=== PATIENT | female | born 1990 | race Two or more races ===

== ENCOUNTER 2021-04-05 12:53 | Emergency (ER) | payer OTHER, SELFPAY ==
[2021-04-05 12:58] VITALS: BP 128/73; PULSE 72; O2SAT 100
[2021-04-05 13:06] VITALS: BP 96/55; PULSE 75; RESP 18; TEMP 37.1; O2SAT 99; BMI 21.2
[2021-04-05] MEDS: Acetaminophen 325 MG TABLET 975 MG PO (13:28)
[2021-04-05] MEDS: Lidocaine 4 % Patch ADH..PATCH 1 PATCH TRANSDERMA (13:28)
[2021-04-05] MEDS: Cyclobenzaprine HCl 10 MG TABLET PO (13:28)
[2021-04-05] MEDS: Ketorolac Tromethamine 30 MG/ML VIAL IM (13:29)
--- NOTE | 2021-04-05 13:32 | ED_ITS ---
HPI - Back Pain/Injury General Chief Complaint: Back Pain/Injury Stated Complaint: back pain Time Seen by Provider: 04/05/21 13:18 Source: patient Mode of arrival: ambulatory Limitations: no limitations History of Present Illness HPI Narrative: 30 y/o female presenting to ER from home via EMS with severe lower back pain that started yesterday when she was lifting boxes. Today when she got up out of bed the pain was excruciating. Described as spasm and tightness in her left lower back. It radiates down the back of her left leg. No numbness, tingling, incontinence or fevers. Difficulty walking due to pain. MD elicited complaint: back pain Onset (ago): day(s) (1) Timing: constant Severity: severe Similar Symptoms Previously: No Quality: aching and spasming Location: left lower back Radiation: left upper leg Exacerbating factors: movement, walking and coughing/sneezing Relieving factors: none Context: while lifting and turning/twisting Associated symptoms: denies other symptoms Work related injury: No Related Data Previous Rx's Medication Instructions Recorded cyclobenzaprine 10 mg PO TID PRN #12 tab 04/05/21 ibuprofen 800 mg PO Q8H PRN #15 tab 04/05/21 lidocaine [Lidoderm] 1 patch TOPICAL DAILY #15 ea 04/05/21 Allergies Allergy/AdvReac Type Severity Reaction Status Date / Time No Known Allergies Allergy Verified 04/05/21 13:09 Review of Systems Review of Systems: Constitutional: No Fever, No Chills Gastrointestinal: No Nausea, No Vomiting, No Diarrhea, No abdominal Pain Genitourinary: No Dysuria, No Urinary Frequency, No Hematuria Musculoskeletal: No joint pain, + Myalgias Skin: No Skin Lesions, No rash Neuro: No Weakness, No Numbness Heme/Lymph: No Bruising, No Lymphadenopathy PMFSH Past Medical History Attestation statement: The following information was validated with the patient. Medical History (Updated 04/05/21 @ 14:11 by ADONIS Coley) No known health problems Social History Social History Advance Directives: No Advance Directives Information Provided: Yes Patient : No Physical Exam Vital Signs: Vital Signs: Last Vital Signs Temp 98.7 F 04/05/21 13:06 Pulse 75 04/05/21 13:06 Resp 17 04/05/21 14:23 BP 96/55 L 04/05/21 13:06 Pulse Ox 99 04/05/21 13:06 Body Mass Index 21.2 Appearance: Alert. Oriented X3. No acute distress. HEENT: normal inspection CVS: Normal heart rate and rhythm. Pulses normal. Respiratory: No respiratory distress. Skin: Skin warm and dry. Normal skin color. Normal skin turgor. No rashes. Back: left middle lumbar area with soft tissue tenderness and spasm. +straight leg raise test. no spinal tenderness. Limited ROM due to pain. Extremities: atraumatic, no edema. Neuro: Oriented X 3. SLow but steady gait due to pain. Course Course Course Narrative: 30 y/o female presenting with left sided low back pain after lifting heavy boxes yesterday then turning today. Exam and clinical presentation consistent with muscular injury/strain. No red flag symptoms of LBP. No urinary symptoms. Will treat with NSAID, muscle relaxer, tylenol, lidoderm and reassess. Reevaluation(s) Reevaluation #1: Pain much improved. She is slow but steady with her movements. She is stable for discharge with treatment for muscle strain. Discharge Plan Discharge Clinical Impression: Strain of lumbar region Qualifiers: Encounter type: initial encounter Qualified Code(s): S39.012A - Strain of muscle, fascia and tendon of lower back, initial encounter Patient Disposition: Home, Self-Care Instructions: Low Back Strain (ED), Lower Back Exercises (ED) Additional Instructions: No bending, lifting or twisting. Use ice several times per day for 20 minutes at a time for the next 48 hours and then change to heat. Take medications as prescribed to help with pain and discomfort. Follow up with your Primary Care Doctor this week. If your pain worsens, if you develop new numbness, tingling, weakness, loss of function or incontinence call 911 or come back to the ER right away for evaluation. Sin agacharse, levantar ni torcer. Use hielo varias veces al d?a dior 20 minutos a la vez dior las pr?ximas 48 horas y luego cambie a calor. Nubieber los medicamentos recetados para aliviar el dolor y la incomodidad. Louann un seguimiento con cancino m?dico de atenci?n primaria esta semana. Si cancino dolor empeora, si presenta entumecimiento, hormigueo, debilidad, p?rdida de funci?n o incontinencia nuevos, llame al 911 o regrese a la jazmin de emergencias de inmediato para mykel evaluaci?n. Prescriptions: New cyclobenzaprine 10 mg tablet 10 mg PO TID PRN (Reason: muscle spasm) Qty: 12 RF: 0 ibuprofen 800 mg tablet 800 mg PO Q8H PRN (Reason: pain) Qty: 15 RF: 0 lidocaine [Lidoderm] 5 % adhesive patch,medicated 1 patch topical DAILY Qty: 15 RF: 0 Stand Alone Forms: Work/School Release Interventions: ED Discharge Assessment Last Done: 04/05/21 14:55 Discharge Date/Time: 04/05/21 14:55 Print Language: Montserratian
[2021-04-05 14:23] VITALS: RESP 17
--- NOTE | 2021-04-05 14:54 | PC.NURSE ---
PT ABLE TO STAND AND PIVOT FROM BED TO W/C WITHOUT ANY DIFFICULTY. PT SLOW TO MOVE BUT WAS ABLE TO GET INTO WHEELCHAIR. PT WAITING FOR RIDE HOME IN [facility].
== END 2021-04-05 14:55 | disposition home or self-care (01) ==
PROVIDERS: Emergency Provider Emergency Medicine Emergency Medical Services
DX: M54.42 Lumbago with sciatica, left side (principal); S39.012A Strain of muscle, fascia and tendon of lower back, initial encounter; X50.0XXA Overexertion from strenuous movement or load, initial encounter; Y93.9 Activity, unspecified; Y92.59 Other trade areas as the place of occurrence of the external cause; Y99.0 Civilian activity done for income or pay
CPT/HCPCS: 96372; 99284; J1885

== ENCOUNTER 2022-09-29 14:21 | Outpatient (REF) | payer OTHER, SELFPAY ==
[2022-10-06 04:12] LABS: HPV 16 RNA DETECTED (NOT DETECTED); HPV mRNA E6/E7 rflx Detected (Not Detected)
== END 2022-09-29 14:22 | disposition home or self-care (01) ==
LOC: HO.LNP 14:21
PROVIDERS: Visit Provider Advanced Practice Midwife
DX: B00.9 Herpesviral infection, unspecified (principal); Z12.4 Encounter for screening for malignant neoplasm of cervix; Z20.2 Contact with and (suspected) exposure to infections with a predominantly sexual mode of transmission
CPT/HCPCS: 87624; 87625; 88142

== ENCOUNTER 2022-09-29 14:48 | Outpatient (REF) | payer OTHER, SELFPAY ==
[2022-09-29 18:31] LABS: CT PCR DETECTED (Not Detect.); NG PCR NOT DETECTED (Not Detect.)
[2022-09-30 05:46] LABS: Syphilis Screen Nonreactive (Nonreactive)
[2022-09-30 05:53] LABS: HBsAGNum1 0.18 S/CO (0.00-0.99); HIV AB/AG Nonreactive (Nonreactive); HIV Num 1 0.08 S/CO (0.00-0.99); Hepatitis B Surface Antigen Negative (Negative); ~HepC Num1 0.07 S/CO (0.00-0.79); ~Hepatitis C Antibody Nonreactive (Nonreactive)
[2022-09-30 09:02] LABS: BV Int Neg Control Negative (Negative); BV Int Pos Control Positive (Positive)
[2022-09-30 11:07] LABS: Herpes Simplex Type 2 IgG <0.90 index
== END 2022-09-29 14:49 | disposition home or self-care (01) ==
LOC: HO.LAB 14:48
PROVIDERS: Visit Provider Advanced Practice Midwife
DX: B00.9 Herpesviral infection, unspecified (principal); Z12.4 Encounter for screening for malignant neoplasm of cervix; Z20.2 Contact with and (suspected) exposure to infections with a predominantly sexual mode of transmission
CPT/HCPCS: 86695; 86696; 86780; 86803; 87340; 87389; 87480; 87491; 87510; 87591; 87660

== ENCOUNTER 2022-10-13 15:48 | Outpatient (REF) | payer OTHER, SELFPAY | END 2022-10-13 15:49 | disposition home or self-care (01) | LOC: HO.LNP 15:48 | PROVIDERS: Visit Provider Obstetrics & Gynecology | DX: Z13.89 Encounter for screening for other disorder (principal) ==

== ENCOUNTER 2024-12-08 14:39 | Outpatient (REF) | payer OTHER, SELFPAY ==
[2024-12-09 12:36] LABS: Bacterial Vaginosis PCR NEGATIVE (Negative); Candida Group PCR NOT DETECTED (Not Detect); Candida glab krusei PCR NOT DETECTED (Not Detect); Trichomonas vaginalis PCR NOT DETECTED (Not Detect)
[2024-12-09 13:09] LABS: CT PCR NOT DETECTED (Not Detect.); NG PCR NOT DETECTED (Not Detect.)
[2024-12-11 07:57] LABS: Syphilis Screen Nonreactive (Nonreactive)
[2024-12-11 08:13] LABS: HBsAGNum1 0.33 S/CO (0.00-0.99); HIV AB/AG Nonreactive (Nonreactive); HIV Num 1 0.06 S/CO (0.00-0.99); Hepatitis B Surface Antigen Negative (Negative); ~HepC Num1 0.08 S/CO (0.00-0.79); ~Hepatitis C Antibody Nonreactive (Nonreactive)
== END 2024-12-08 14:40 | disposition home or self-care (01) ==
LOC: HO.LAB 14:39
PROVIDERS: Visit Provider Advanced Practice Midwife
DX: Z12.4 Encounter for screening for malignant neoplasm of cervix (principal); A74.9 Chlamydial infection, unspecified; Z20.2 Contact with and (suspected) exposure to infections with a predominantly sexual mode of transmission; N89.8 Other specified noninflammatory disorders of vagina; Z87.42 Personal history of other diseases of the female genital tract
CPT/HCPCS: 81515; 86780; 86803; 87340; 87389; 87491; 87591; 99212

== ENCOUNTER 2024-12-08 14:45 | Outpatient (AMB) | payer OTHER, SELFPAY ==
[2024-12-08 14:41] VITALS: BP 122/70; BMI 23.7
--- NOTE | 2024-12-08 14:41 | MHC.OFFVIS ---
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 Patient was last seen in 2021 and had at that time it recent history of chlamydia and a recent exposure to herpes and also she had an abnormal Pap smear was ASCUS and positive HPV and was referred cut for colposcopy and she left that visit before being seen. Patient tells me she went to [place] but she does not remember if she had any appointments there. She is not having any particularly symptoms of infections today but wants to be checked she says she has not sexually active currently because she does not have a partner currently. She says that 2 years ago she took plan B and her periods had previously been very regular every month lasting for 5 days but after she took the plan B they were only lasting 1 or 2 days and she wants to know why. She says she did tests and they were all negative. She says she is getting regular periods now but they are all 1-2 days. She denies any major weight gains or losses. She denies any other health problems. [facility] Medical History No known health problems Surgical History H/O bilateral breast reduction surgery Female Reproductive History Menstrual Age of Menarche: 13 Duration of menses: 3-5 days Date of last menstrual period: 11/23/24 control method: none Total pregnancies: 1 Full term: 1 Date of last pap smear: 10/01/22 (ASCUS +HPV) Physical Exam Vital Signs: Last Vital Signs BP 122/70 12/08/24 14:41 BMI result Body Mass Index 23.7 Other: External exam within normal limits vagina is pink and moist with a normal clear discharge consistent with normal vaginal mucus. Cervix is multiparous pink smooth possibly with some white spots on her cervix. External Female Exam: normal external appearance and normal appearance of the urethra Speculum Exam - Vagina: normal appearance of the vagina and normal vaginal discharge Speculum Exam - Cervix: normal appearance of the cervix and Cervical os closed Assessment & Plan Assessment & Plan (1) Herpes: Comment: has oral lesion, started after contact w partner, desires testing, teaching done Code(s): B00.9 - Herpesviral infection, unspecified Category: Medical (2) Cervical cancer screening: Comment: hi risk hpv detected, pap= ascus- needs colpo... Patient apparently left the office without being seen in 2021. Code(s): Z12.4 - Encounter for screening for malignant neoplasm of cervix Category: Medical (3) Chlamydia infection: Comment: test from 09/29/22 positive, rxd 09/30/22. Code(s): A74.9 - Chlamydial infection, unspecified Category: Medical (4) Potential exposure to STD: Comment: PATIENT SHOWED STAFF AT [employer] INFORMATION IN HER PHONE SHOWING THAT SHE HAD BEEN A CONTACT TO [facility] SHE HAD NOT SHARED THIS WITH ME DURING THE VISIT WE WILL SEE HER TOMORROW AND TREAT HER ACCORDINGLY. Code(s): Z20.2 - Contact with and (suspected) exposure to infections with a predominantly sexual mode of transmission Category: Medical (5) Hx of abnormal cervical Pap smear: Comment: 2021-ASCUS with positive HPV. Was scheduled for colpo, left the office without being seen in 2021, apparently went to [place]. Reappearing 12/08/2024 for STI screen reviewed need for follow-up on the abnormal Pap. has appointment in week and a half for Pap smear and will manage accordingly after that. Code(s): Z87.42 - Personal history of other diseases of the female genital tract Category: Medical Plan Testing done today during this visit for gonorrhea chlamydia trichomoniasis Roxana and bacterial vaginosis I reviewed with the patient that her cervix appeared very good today but that she very much needs follow-up for the abnormal Pap smear as she should have had a colposcopy when it was recommended and scheduled in 2021. At that time she also need a test of cure for the chlamydia which was now able to be done in our office as the patient left. 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 I asked the patient to please be sure that she keeps that appointment or rescheduled it if she can not keep that appointment as it is very important for her to have follow-up for her history of abnormal Pap smear in HPV from 2021. Testing ordered as well for blood work for STIs as the patient wanted those today testing ordered for HIV hep B hep C and syphilis.. It did review again with the patient that she had had positive antibodies for the B's in 2021 but she did not remember that and did not seem to remember that today. Of note patient did seem to have difficulty understanding communications in Estonian, for instance that she go straight downstairs to the lab which was repeated several times, and also repeated the same statements multiple times. I did inform her, because she is not on the portal. that we will let her know the results of her blood work and other test when she comes for her next visit in a week and a half. I asked her to keep track of her periods and to document things so that we can discuss them were carefully with her next visit. Orders: Orders Hepatitis C Antibody Today A74.9 - Chlamydial infection, unspecified, Z12.4 - Encounter for screening for malignant neoplasm of cervix, Z20.2 - Contact with and (suspected) exposure to infections with a predominantly sexual mode of transmission HIV Ab/Ag Today A74.9 - Chlamydial infection, unspecified, Z12.4 - Encounter for screening for malignant neoplasm of cervix, Z20.2 - Contact with and (suspected) exposure to infections with a predominantly sexual mode of transmission CT NG by PCR Today N89.8 - Other specified noninflammatory disorders of vagina, Z20.2 - Contact with and (suspected) exposure to infections with a predominantly sexual mode of transmission Bacterial Vaginosis Panel Today N89.8 - Other specified noninflammatory disorders of vagina, Z20.2 - Contact with and (suspected) exposure to infections with a predominantly sexual mode of transmission Hepatitis B Surface Antigen Today A74.9 - Chlamydial infection, unspecified, Z12.4 - Encounter for screening for malignant neoplasm of cervix, Z20.2 - Contact with and (suspected) exposure to infections with a predominantly sexual mode of transmission Syphilis Screen Today A74.9 - Chlamydial infection, unspecified, Z12.4 - Encounter for screening for malignant neoplasm of cervix, Z20.2 - Contact with and (suspected) exposure to infections with a predominantly sexual mode of transmission Coding Level of Care Code New Pt Level 3 (18206) Diagnoses Herpes B00.9 Cervical cancer screening Z12.4 Chlamydia infection A74.9 Potential exposure to STD Z20.2 Hx of abnormal cervical Pap smear Z87.42
== END 2024-12-08 15:18 | disposition home or self-care (01) ==
PROVIDERS: Visit Provider Advanced Practice Midwife
DX: B00.9 Herpesviral infection, unspecified (principal); Z20.2 Contact with and (suspected) exposure to infections with a predominantly sexual mode of transmission; A74.9 Chlamydial infection, unspecified; Z87.42 Personal history of other diseases of the female genital tract
CPT/HCPCS: 99213

== ENCOUNTER 2024-12-08 15:15 | Outpatient (REF) | payer SELFPAY | END 2024-12-08 15:16 | disposition home or self-care (01) | LOC: HO.HHCL 15:15 | PROVIDERS: Visit Provider Advanced Practice Midwife | DX: Z13.89 Encounter for screening for other disorder (principal) ==

== ENCOUNTER 2025-01-30 14:34 | Outpatient (AMB) | payer OTHER, SELFPAY ==
[2025-01-30 14:40] VITALS: BP 116/70; BMI 23.7
--- NOTE | 2025-01-30 14:40 | MHC.OFFVIS ---
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 She had an abnormal Pap smear in 2021 but then moved [place]. She had been given an appointment for colposcopy but she left the office without being seen in 2021 additionally she had had been named as a contact for chlamydia at that time and she had been treated and she also left before that test of cure could be done. She presented in November of this year requesting an STI screen. Full STIs done with negative results she also had mentioned at that visit and brought up again today that 2 years ago she took plan B and ever since she took plan B her periods which used to be 5 days long have been short 2 days and she wants her periods to go back normal for what she experienced as normal. Additionally she is not using anything for contraception now although she does use condoms but she did not elaborate on how consistently. When I offered her something for control she said she would like control but her biggest concern was getting her periods to be back like they used to be. 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 Nevertheless on questioning an offering and she says she does want control pills [facility] Medical History (Updated 01/30/25 @ 15:42 by Leann Miller CNM) No known health problems Surgical History (Updated 01/30/25 @ 15:41 by Leann Miller CNM) H/O bilateral breast reduction surgery Female Reproductive History Menstrual Age of Menarche: 13 Duration of menses: 3-5 days Date of last menstrual period: 01/18/25 control method: none Total pregnancies: 1 Full term: 1 Date of last pap smear: 10/01/22 (ASCUS,HPV +) History of abnormal pap smear: Yes Physical Exam Vital Signs: Last Vital Signs BP 116/70 01/30/25 14:40 BMI result Body Mass Index 23.7 Const Other: Evidence of cosmetic surgery including breast implants General: healthy appearing, comfortable, no acute distress, well developed and alert Nutritional Appearance: average body habitus Orientation/consciousness: patient oriented x3 Limitations: no limitations HEENT Head: Yes normocephalic Neck Neck: Yes normal visual inspection Chest Chest palpation & inspection: normal inspection of the chest Breast/axilla inspection: normal inspection of the breasts and normal inspection of the axillae Breast/axilla palpation: normal palpation of the breasts and normal palpation of the axillae Resp Effort & Inspection: normal respiratory effort GI Inspection: Yes normal to inspection, No Abdominal wall edema and No distended Palpation (GI): Soft to palpation and nontender Other: Vagina pink somewhat dry. Scant if any mucus cervix multiparous appears within normal limits long close thick mobile nontender uterus midposition mobile nontender adnexa nontender nonenlarged good tone with Kegel. General: Yes bladder normal to palpation External Female Exam: normal external appearance and normal appearance of the urethra Speculum Exam - Vagina: normal appearance of the vagina, normal palpation and normal vaginal discharge Speculum Exam - Cervix: normal appearance of the cervix, normal palpation and nontender Bimanual exam- vagina & uterus: normal bimanual exam, normal palpation, uterine size normal, bladder normal to palpation, consistency normal, normal palpation, uterine mobility normal, uterine shape normal, No Cervical tenderness present, non-tender and no cervical motion tenderness Bimanual Exam- Adnexa, other: normal adnexae, no masses, normal and No adnexal tenderness Neuro General: patient oriented x3 Results Reviewed Results Reviewed: Name: Coni De Guzman Age/Sex: 32/F Attending: Leann Miller CNM : 1990 Submitted by: Leann Miller CNM Copies to: MR #: [id number] Status: DEP REF Collected: 09/29/22 Location: [facility] Received: 10/01/22 Interpretation General Category: Epithelial cell abnormality. Adequacy: Endocervical component present. Interpretation: Atypical squamous cells, cannot exclude high grade squamous intraepithelial lesion. Abundant, partially obscuring acute inflammation. HPV mRNA E6/E7: DETECTED This assay detects E6/E7 viral messenger RNA (mRNA) from 14 high-risk HPV types (16, 18, 31, 33, 35, 39, 45, 51, 52, 56, 58, 59, 66, 68) HPV Type 16 RNA: DETECTED HPV Type 18/45 RNA: Not Detected HPV testing performed by [employer], [place], [place]. See reference laboratory portion of the EMR for entire report. Clinical Information LMP: 09/10/22 Previous PAP test: Unknown Material Received ThinPrep-Cervical Electronically Signed By: Suzanna Ibrahim 10/21/221912 The Pap Test is a screening procedure with the inherent possibility of both false negative and false positive results. Results should be interpreted in the context of historic and current clinical findings. Reliability of the Pap Test is enhanced by performing the test on a regular repetitive basis. Patient: Coni De Guzman Age/Sex: 32/F MR#: [id number] Page 1 of 1 Name: Coni De Guzman Age/Sex: 34/F : 1990 Unit#: [id number] Attend Dr: Leann Miller CNM Re12/08/24 Status: DEP REF Location: .LAB Disch: SPEC : [id number] CEZAR: 12/08/24-UNK STATUS: COMP REQ : [id number] RECD: 12/08/[address]: Leann Miller CNM COMP: 12/09/24-1236 ENTERED: 12/08/[address] [facility] [address]: Physician,Nonstaff ORDERED: BV Panel Test Result Flag Reference TV PCR NOT DETECTED Not Detect BV PCR NEGATIVE Negative The BV organism targets of the Xpert Xpress MVP test can be commensal in women; Xpert Xpress MVP positive results for bacterial vaginosis should be considered in conjunction with other clinical and patient information to determine the disease status. Organisms that are not detected by the Xpert Xpress MVP test have also been reported to be associated with BV and aerobic vaginitis. The Xpert Xpress MVP test performance has not been evaluated in patients under the age of 14. Roxana Grp PCR NOT DETECTED Not Detect Can gla-kru NOT DETECTED Not Detect Name: Coni De Guzman Age/Sex: 34/F : 1990 Unit#: [id number] Attend Dr: Leann Miller CNM Re12/08/24 Status: [facility]P [facility] SPEC : [id number] CEZAR: 12/08/24 STATUS: COMP REQ : [id number] RECD: 12/08/[address] [facility] [address]: Leann Miller CNM COMP: 12/09/24 ENTERED: 12/08/[address] [facility] [address]: Physician,Nonstaff ORDERED: CT NG by PCR QUERIES: CT NG Source: Vaginal Test Result Flag Reference CT PCR NOT DETECTED Not Detect. A not detected test result does not exclude the possibility of infection because test results can be affected by improper specimen collection, concurrent antibiotic therapy, or the number of organisms in the specimen which may be below the sensitivity of the test. As with many diagnostic tests, results from the Xpert CT/NG assay should be interpreted in conjunction with other laboratory and clinical data available to the clinician. Xpert CT/NG performance has not been evaluated in patients less than 14 years of age. The assay should not be used for the evaluation of suspected sexual abuse or for other medico-legal indications. Additional testing is recommended in any circumstance when false positive or false negative results could lead to adverse medical, social or psychological consequences. NG PCR NOT DETECTED Not Detect. A not detected test result does not exclude the possibility of infection because test results can be affected by improper specimen collection, concurrent antibiotic therapy, or the number of organisms in the specimen which may be below the sensitivity of the test. As with many diagnostic tests, results from the Xpert CT/NG assay should be interpreted in conjunction with other laboratory and clinical data available to the clinician. Xpert CT/NG performance has not been evaluated in patients less than 14 years of age. The assay should not be used for the evaluation of suspected sexual abuse or for other medico-legal indications. Additional testing is recommended in any circumstance when false positive or false negative results could lead to adverse medical, social or psychological consequences. END OF REPORT maryann: Coni De Guzman Age/Sex: 34/F : 1990 Unit#: [id number] Attend Dr: Leann Miller CNM Re12/08/24 Status: DEP REF Location: .LAB Disch: SPEC : [id number] CEZAR: 12/08/24 STATUS: COMP REQ : [id number] RECD: 12/08/[address]: Leann Miller CNM COMP: 12/11/24 ENTERED: 12/08/[address]: Physician,Nonstaff ORDERED: Syphil Scrn Test Result Flag Reference Syphilis TP EIA Nonreactive Nonreactive END OF REPORT Name: Coni De Guzman Age/Sex: 34/F : 1990 Unit#: [id number] Attend Dr: Leann Miller CNM Re12/08/24 Status: DEP REF Location: .LAB Disch: SPEC : [id number] CEZAR: 12/08/24 STATUS: COMP REQ : [id number] RECD: 12/08/[address]: Leann Miller CNM COMP: 12/11/24 ENTERED: 12/08/[address]: Physician,Nonstaff ORDERED: Anti-HCV, HIV Ab/Ag, HBsAG Test Result Flag Reference Anti-HCV Nonreactive Nonreactive Antibodies to HCV not detected; does not exclude early acute HCV infection. HIV AB/AG Nonreactive Nonreactive HIV-1 p24 Ag and/or HIV-1/HIV-2 Ab not detected. A test result that is nonreactive does not exclude the possibility of exposure to or infection with HIV-1 and/or HIV-2. Nonreactive results in this assay for individuals with prior exposure to HIV-1 and/or HIV-2 may be due to antigen and antibody levels that are below the limit of detection of this assay. The myaNUMBERnity HIV Ag/Ab Combo assay result and supplemental assay results should be interpreted in conjunction with the patient's clinical presentation, history and other laboratory results. If the results are inconsistent with clinical evidence, additional testing is suggested to confirm the result. HBsAG Negative Negative Assessment & Plan Assessment & Plan (1) Hx of abnormal cervical Pap smear: Comment: 2021-ASCUS with positive HPV. Was scheduled for colpo, left the office without being seen in 2021, apparently went to [place]. Reappearing 12/08/2024 for STI screen reviewed need for follow-up on the abnormal Pap. has appointment in week and a half for Pap smear and will manage accordingly after that.; Pap smear done 01/30/2025. Discussed that we will manage according to the results. I recommend she call the office if she has not heard from us within 2 weeks and I gave her the phone number. Patient she was new she is not planning a trip any time soon. I told her that if she did she should seek care for her Pap smear issues in [place]. Code(s): Z87.42 - Personal history of other diseases of the female genital tract Category: Medical (2) Cervical cancer screening: Comment: hi risk hpv detected, pap= ascus- needs colpo... Patient apparently left the office without being seen in 2021. Code(s): Z12.4 - Encounter for screening for malignant neoplasm of cervix Category: Medical (3) Potential exposure to STD: Comment: PATIENT SHOWED STAFF AT [employer] INFORMATION IN HER PHONE SHOWING THAT SHE HAD BEEN A CONTACT TO [facility] SHE HAD NOT SHARED THIS WITH ME DURING THE VISIT WE WILL SEE HER TOMORROW AND TREAT HER ACCORDINGLY.; full screening done 12/08/2024 all negative. Code(s): Z20.2 - Contact with and (suspected) exposure to infections with a predominantly sexual mode of transmission Category: Medical (4) Light menstrual flow: Comment: Patient says her periods have been shorter ever since she took plan B in 2022 Code(s): N91.5 - Oligomenorrhea, unspecified Category: Medical (5) control counseling: Comment: Patient decided to start on control pills to start with next menses after 01/30/2025. Code(s): Z30.09 - Encounter for other general counseling and advice on contraception Category: Medical (6) H/O bilateral breast reduction surgery: Comment: 2024 patient has had obvious breast implants .unclear if this was done with a 2nd procedure after reduction that was added to her history in 2021..... Code(s): Z98.890 - Other specified postprocedural states Category: Surgical Plan -----Discussed in this visit the following: healthy balanced diet, regular and consistent exercise, getting recommended health screens, doing the best she can for her particular health concerns, kegel exercises, pap smear screening and followup recommendations, mammography screening and SBE, normal changes in cycles in her life stage--- . 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 That being said she says she is still would like some control pills so I offered her control pills she denies any contraindications to them so I will prescribe them today I instructed her to start on the 1st day of her next period which probably be towards the end of this month. I instructed her to take 1 pill every day at the same time every day and change the day of the sticker to match the day that she is starting pills. The day of the week sticker may be in egyptian. We will see her in 3 months to see how she is doing on pills and I told her to call for any negative side effects but some light irregular bleeding is to be expected and not worrisome. As far as her screening for STIs all of her screens were negative from 12/08/2024 and she has no concerns at all since and did not need any testing today . Terms of her history of Pap is ASCUS and positive HPV I confirmed with her that she has no intention to leave the country before this is dealt with again we did the Pap smear today and we will await the results and manage accordingly I told her that we would send her a letter if it was normal and she would receive a phone call with discussion of the follow that is needed if it was abnormal. I gave her the phone number and I asked her to call if she does not hear from us within 2 weeks. I am sending a prescription to her pharmacy [facility] for OCPs to start the beginning of the next menses see her in 3 months. Orders: Orders Pap Smear Today Z00.00 - Encounter for general adult medical examination without abnormal findings Medications: New desog-e.estradiol/e.estradiol 0.15-0.02 mgx21 /0.01 mg x 5 1 tab PO DAILY 84 tabs 3RF Coding Level of Care Code Est Pt Prev Care 18-39y(42585) Diagnoses Hx of abnormal cervical Pap smear Z87.42 Cervical cancer screening Z12.4 Potential exposure to STD Z20.2 Light menstrual flow N91.5 control counseling Z30.09 H/O bilateral breast reduction surgery Z98.890
== END 2025-01-30 15:34 | disposition home or self-care (01) ==
LOC: HO.HWSM 14:34
PROVIDERS: Visit Provider Advanced Practice Midwife
DX: Z01.419 Encounter for gynecological examination (general) (routine) without abnormal findings (principal); N91.5 Oligomenorrhea, unspecified; Z20.2 Contact with and (suspected) exposure to infections with a predominantly sexual mode of transmission
CPT/HCPCS: 99395; 99459

== ENCOUNTER 2025-01-30 14:34 | Outpatient (REF) | payer OTHER, SELFPAY ==
[2025-02-02 15:09] LABS: HPV Genotype 16 Negative (Negative); HPV Genotype 18 Negative (Negative); HPV High Risk Negative (Negative)
== END 2025-01-30 14:35 | disposition home or self-care (01) ==
LOC: HO.LNP 14:34
PROVIDERS: Visit Provider Advanced Practice Midwife
DX: Z01.419 Encounter for gynecological examination (general) (routine) without abnormal findings (principal); Z98.890 Other specified postprocedural states; N91.5 Oligomenorrhea, unspecified; Z20.2 Contact with and (suspected) exposure to infections with a predominantly sexual mode of transmission; Z87.42 Personal history of other diseases of the female genital tract
CPT/HCPCS: 87626; 88175; 99395; 99459

== ENCOUNTER 2025-03-15 12:30 | Outpatient (REF) | payer OTHER, SELFPAY | END 2025-03-15 12:31 | disposition home or self-care (01) | LOC: HO.LNP 12:30 | PROVIDERS: Visit Provider Obstetrics & Gynecology | DX: N87.0 Mild cervical dysplasia (principal) | CPT/HCPCS: 57454; 81025; 88305 ==

== ENCOUNTER 2025-03-15 12:30 | Outpatient (AMB) | payer OTHER, SELFPAY ==
[2025-03-15 12:33] VITALS: BP 108/62; BMI 23.7
--- NOTE | 2025-03-15 12:33 | MHC.OFFVIS ---
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 Co testing done 10/13 showed ASCUS HPV positive PFSH Medical History ASCUS with positive high risk HPV cervical No known health problems Surgical History H/O bilateral breast reduction surgery Female Reproductive History Menstrual Age of Menarche: 13 Date of last menstrual period: 02/11/25 control method: pills Review of Systems Const All systems reviewed & are unremarkable except as noted in HPI and below Reports as per HPI and Reports no additional complaints GI Reports no additional complaints Reports no additional complaints Physical Exam Vital Signs: Last Vital Signs BP 108/62 03/15/25 12:33 BMI result Body Mass Index 23.7 Office Procedures Colposcopy Colposcopy: Pre-Procedure Counseling: Before beginning the procedure, I conducted comprehensive counseling with the patient. We thoroughly discussed the procedure itself, including its details, alternatives, and all associated risks. This included but not limited to the following complications such as bleeding, infection, and injury to the vagina, bladder, and vessels, as well as the potential need for transfusion with all its associated risks. Subsequently, the patient sign the consent. Pap smear result: Ascus HPV negative Urine test in office = Negative Procedure: During the procedure, the following steps were performed: A speculum was inserted, and acetic acid was applied. Colposcopy was conducted, allowing visualization of the transformation zone. Acetowhite lesions were identified at the 5+ 6+ 7+ 9+ 11+ 3 o'clock position. Cervical biopsies were obtained from the 5+ 6+ 7+ 9+ 11+ 3 o'clock position, followed by an endocervical curettage (ECC). Vaginoscopy of the upper vagina revealed no evidence of aceto-white lesions. Hemostasis was achieved using Monsel solution, and the patient tolerated the procedure well. Post-Procedure Instructions: The patient was advised to promptly contact the office or the after hours answering service or go to the emergency room if experiencing a temperature exceeding 100.4?F, abdominal pain, nausea/vomiting, or bleeding. Additionally, the patient was instructed to abstain from vaginal intercourse and bathtub use. The patient confirmed understanding of these instructions. Discharge Instructions: The patient was instructed to schedule a follow-up appointment in 2 weeks for further evaluation and management. Please note that this note was generated using a voice recognition program, and errors may have occurred during cassandra architect. [id number] of cervix including upper vagina with biopsy and ECC Procedure code (CPT) selection complete Assessment & Plan Assessment & Plan (1) ASCUS of cervix with negative high risk HPV: Comment: 10/13 ascus HPV positive Code(s): R87.610 - Atypical squamous cells of undetermined significance on cytologic smear of cervix (ASC-US) Category: Medical Plan: Discussed with the patient the result of her abnormal pap, its significance, risk of progression, persistence, and regression. the false positive/negative rate of a Pap smear as a screening test in detecting cervical cancer and the indication for a diagnostic test -colposcopy, biopsy, endocervical curettage. The patient verbalized understanding and agreed with the plan, all questions answered. Colpo biopsy ECC done, see procedure note Orders: Orders AMB HCG Urine Test Today Z32.02 - Encounter for test, result negative AMB Colposcopy Today R87.610 - Atypical squamous cells of undetermined significance on cytologic smear of cervix (ASC-US) Coding Level of Care Code Procedure Only Diagnoses ASCUS of cervix with negative high risk HPV R87.610 CPT Codes Colposcopy - CPT: 40103-[id number] of cervix including upper vagina with biopsy and ECC ([id number])
== END 2025-03-15 13:42 | disposition home or self-care (01) ==
LOC: HO.HWS 12:30
PROVIDERS: Visit Provider Obstetrics & Gynecology
DX: R87.610 Atypical squamous cells of undetermined significance on cytologic smear of cervix (ASC-US) (principal); Z32.02 Encounter for pregnancy test, result negative
CPT/HCPCS: 57454

== ENCOUNTER 2025-06-13 11:03 | Outpatient (AMB) | payer OTHER, SELFPAY ==
[2025-06-13 11:14] VITALS: BMI 24.4
--- NOTE | 2025-06-13 11:14 | A.OFFVIS_ITS ---
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 The patient is doing well with no complaints. The pathology showed the following: A. Endocervix, curettage: Superficial fragments of endocervical epithelium within normal limits B. Cervix, 3 o'clock, biopsy: - Low-grade squamous intraepithelial lesion (TIFFANIE 1). - Endocervical epithelium within normal limits. C. Cervix, 5 o'clock, biopsy: - Low-grade squamous intraepithelial lesion (TIFFANIE 1). - Endocervical epithelium within normal limits. D. Cervix, 6 o'clock, biopsy: - Endocervical mucosa within normal limits. - Small fragment of squamous epithelium within normal limits. E. Cervix, 7 o'clock, biopsy: - Low-grade squamous intraepithelial lesion (TIFFANIE 1). - Endocervical epithelium within normal limits. F. Cervix, 9 o'clock, biopsy: - Mildly inflamed endocervical mucosa with reactive changes. - No squamous epithelium identified. G. Cervix, 11 o'clock, biopsy: - Mildly inflamed endocervical mucosa with reactive changes. - No squamous epithelium identified. COMMENT: The findings are concordant with the patient's recent Pap/cytology specimen ([id number]; ASCUS with negative HPV) - slide reviewed [facility] Medical History ASCUS with positive high risk HPV cervical No known health problems Surgical History H/O bilateral breast reduction surgery Social History Household Members Other:: Daughter/ grandmother Housing: Apartment Alcohol intake: former Patient Tobacco Use Status: Never used Tobacco Current occupational status: unemployed Sexual orientation: Straight/Heterosexual Gender identity: Female Female Reproductive History Menstrual Age of Menarche: 13 Duration of menses: <3 days Date of last menstrual period: 06/02/25 control method: pills Total pregnancies: 4 Full term: 1 Number of Living Children: 1 Ab induced: 3 Review of Systems Const All systems reviewed & are unremarkable except as noted in HPI and below Reports as per HPI and Reports no additional complaints GI Reports no additional complaints Reports no additional complaints Physical Exam Vital Signs: BMI result Body Mass Index 24.4 Assessment & Plan Assessment & Plan (1) Dysplasia of cervix, low grade (TIFFANIE 1): Code(s): N87.0 - Mild cervical dysplasia Category: Medical Plan: Discussed with the patient the pathology results of the colposcopy biopsies & endocervical curettage ( mild dysplasia-TIFFANIE 1). Discussed with the patient the sensitivity specificity, positive and negative predictive value in detecting cervical cancer in addition discussed the regression, persistence and progression rates. Recommended co-testing in 12 months, if cytology and or HPV are abnormal will proceed was colposcopy biopsy and endocervical curettage, if lesions gets worse or stays persistent for 2 years will proceed with loop electric excision procedure. Instructions given to the patient to schedule a co test appointment in 1 year. All questions answered the patient verbalized understanding. Coding Level of Care Code Est Pt Level 3 (76850) Diagnoses Dysplasia of cervix, low grade (TIFFANIE 1) N87.0
== END 2025-06-13 11:43 | disposition home or self-care (01) ==
LOC: HO.HWS 11:03
PROVIDERS: Visit Provider Obstetrics & Gynecology
DX: N87.0 Mild cervical dysplasia (principal)
CPT/HCPCS: 99213

== ENCOUNTER → 2025-06-13 11:03 | Outpatient (BNVA) | payer OTHER, SELFPAY | PROVIDERS: Visit Provider Obstetrics & Gynecology | DX: N87.0 Mild cervical dysplasia (principal) | CPT/HCPCS: 99212 ==